=== PATIENT | female | born 1980 | race Caucasian/White ===

== ENCOUNTER 2021-09-26 05:16 | Emergency (ER) | payer MEDICAID, OTHER ==
[~2021-09-26] VITALS: Ht 152.4 cm; Wt 78.0 kg
[2021-09-26] MEDS ORDERED: KETOROLAC 30MG/ML VIAL IV STA (06:00)
[2021-09-26] MEDS ORDERED: METOCLOPRAMIDE HCL 10MG/2ML VIAL IV ONE (06:00)
[2021-09-26] MEDS ORDERED: ACETAMINOPHEN 325MG TABLET PO ONE (06:15)
[2021-09-26] MEDS ORDERED: TOPUD PO (07:20)
[2021-09-26 08:17] VITALS: BP 121/83
== END 2021-09-26 08:21 | disposition home or self-care (01) ==
LOC: ER 05:41
DX: R51.9 Headache, unspecified (principal); Z86.73 Personal history of transient ischemic attack (TIA), and cerebral infarction without residual deficits; F17.210 Nicotine dependence, cigarettes, uncomplicated; Z86.011 Personal history of benign neoplasm of the brain; Z98.890 Other specified postprocedural states
CPT/HCPCS: 93005; 99284

== ENCOUNTER 2024-01-19 18:53 | Emergency (ER) | payer MEDICAID ==
[~2024-01-19] VITALS: Ht 152.4 cm; Wt 69.9 kg
[~2024-01-19 18:53] MED LIST: TOPUD PO
[2024-01-19 19:17] VITALS: BP 128/79; PULSE 101; RESP 16; TEMP 98; O2SAT 98
[2024-01-19] MEDS ORDERED: HYDROCODONE/ACETAMINOPHEN 5/325MG TABLET PO ONE (20:00)
[2024-01-19] MEDS ORDERED: KETOROLAC 60MG/2ML VIAL IM ONE (20:00)
[2024-01-19] MEDS ORDERED: ACET-2708 MT (20:58)
[2024-01-19] MEDS ORDERED: IBUP-2028 MT (20:58)
== END 2024-01-19 22:20 | disposition home or self-care (01) ==
LOC: ER 18:53
DX: S82.832A Other fracture of upper and lower end of left fibula, initial encounter for closed fracture (principal); Z98.51 Tubal ligation status; Z98.890 Other specified postprocedural states; X58.XXXA Exposure to other specified factors, initial encounter; Y93.89 Activity, other specified; Y92.89 Other specified places as the place of occurrence of the external cause; Y99.8 Other external cause status
CPT/HCPCS: 73590; 73610; 73630; 29515; 99284; Z7610

== ENCOUNTER 2024-02-06 13:38 | Emergency (ER) | payer MEDICAID ==
[~2024-02-06] VITALS: Ht 152.4 cm; Wt 77.0 kg
[~2024-02-06 13:38] MED LIST changes: +ACET-2708 MT; +IBUP-2028 MT
[2024-02-06 13:43] VITALS: BP 128/90; PULSE 120; RESP 20; TEMP 97.4; O2SAT 98
[2024-02-06] MEDS: AMOXICILLIN 500 MG CAPSULE PO ONE (18:20)
[2024-02-06] MEDS: PSEUDOEPHEDRINE HCL 30MG TABLET PO STA (18:20)
[2024-02-06 18:26] LABS: HEMOGLOBIN. 13.2 g/dL (12.0-16.0); MEAN CORPUSCULAR HEMOGLOBIN 26.6 pg (28.0-32.0); MEAN CORPUSCULAR HGB CONC 32.3 g/dL (31.0-37.0); MEAN CORPUSCULAR VOLUME 82.4 fL (81.0-99.0); MEAN PLATELET VOLUME 7.5 fl (7.4-10.4); PLATELET 308 x1000/uL (130-400); RED BLOOD CELL COUNT 4.97 mill/uL (4.2-5.4); RED CELL DISTRIBUTION WIDTH 18.1 % (11.6-14.6); WHITE BLOOD COUNT 19.6 x1000/uL (4.5-11.0)
[2024-02-06 18:31] LABS: DIFFERENTIAL COMMENT 1
[2024-02-06 18:40] LABS: ALANINE AMINOTRANSFERASE 47 IU/L (10-49); ALBUMIN 4.4 g/dL (3.2-4.8); ASPARTATE AMINOTRANSFERASE 67 IU/L (<34); BILIRUBIN TOTAL 0.5 mg/dL (0.1-1.0); CALCIUM 8.7 mg/dL (8.7-10.4); CARBON DIOXIDE 27 mEq/L (21-32); CHLORIDE 95 mEq/L (98-107); CREATININE 0.7 mg/dL (0.6-1.0); GLUCOSE 146 mg/dL (70-105); POTASSIUM 3.3 mEq/L (3.5-5.1); PROTEIN TOTAL 7.8 g/dL (6.0-8.3); SODIUM 129 mEq/L (136-145)
[2024-02-06] MEDS: KETOROLAC 60MG/2ML VIAL IM ONE (18:54)
[2024-02-06 18:57] LABS: UREA NITROGEN BLOOD < 5 mg/dL (9-23)
[2024-02-06 19:07] LABS: PLATELET ESTIMATE NORMAL
[2024-02-06] MEDS ORDERED: AMOX-494 MT (19:27)
[2024-02-06] MEDS ORDERED: ACET-2708 MT (19:28)
== END 2024-02-06 20:06 | disposition home or self-care (01) ==
LOC: ER 13:38
DX: J18.9 Pneumonia, unspecified organism (principal); Z20.822 Contact with and (suspected) exposure to COVID-19; Z98.890 Other specified postprocedural states; Z98.51 Tubal ligation status; Z86.73 Personal history of transient ischemic attack (TIA), and cerebral infarction without residual deficits
CPT/HCPCS: 80053; 81025; 85025; 87804 ×2; 36415; 71045; 96372; 99284; 87426; J1885; Z7610